=== PATIENT | female | born 1995 | race Caucasian/White ===

== ENCOUNTER 2023-03-30 18:34 | Day surgery (SDC) | payer OTHER ==
[2023-03-30 18:59] VITALS: BMI 27.3
[2023-03-30] MEDS ORDERED: hydrALAZINE 20 MG/ML VIAL SLOW IVP PRN (19:35)
== END 2023-03-30 19:29 | disposition home or self-care (01) ==
LOC: CSHLD/OP 18:34
PROVIDERS: ATTEND Obstetrics & Gynecology
DX: O47.1 False labor at or after 37 completed weeks of gestation (principal); Z3A.39 39 weeks gestation of pregnancy; Z79.899 Other long term (current) drug therapy
CPT/HCPCS: 99282